=== PATIENT | female | born 1945 | race Caucasian/White ===

== ENCOUNTER 2016-11-13 10:59 | Inpatient (IN) | payer MEDICARE, OTHER ==
[2016-11-13] VITALS (13 sets, daily range): BP systolic 92–126; BP diastolic 72–92
[~2016-11-13] VITALS: Ht 175.3 cm; Wt 109.0 kg
[~2016-11-13 10:59] MED LIST: AMLO5TAB2 PO; ASP325T PO; BNZ20T PO; FLUO20CA25 PO; NAPR-243 PO; NF-ESOM40C PO; OXB5T PO; OXYC-12 PO; SENN1TAB76 PO
[2016-11-13] MEDS ORDERED: NS IV 500 ML 500 ML IV ONE ×2 (11:12→12:11)
[2016-11-13] MEDS ORDERED: DILTIAZEM 25 MG/5 ML INJ (CARDIZEM) VIAL IVP ONE (11:15)
[2016-11-13] MEDS ORDERED: RX-NITROGLYCERIN 0.4 MG TAB BTL 25'S SL PRN (11:15)
[2016-11-13 11:21] LABS: BASOPHILS # (AUTO) 0.1 10^3/uL (0.0-0.1); BASOPHILS % (AUTO) 1 % (0-10); EOSINOPHILS # (AUTO) 0.2 10^3/uL (0.0-0.3); EOSINOPHILS % (AUTO) 4 % (0-10); LYMPHOCYTES # (AUTO) 2.8 X 10^3 (1.0-4.0); LYMPHOCYTES % (AUTO) 46 % (12-44); MEAN CORPUSCULAR HEMOGLOBIN 30 PG (25-34); MEAN CORPUSCULAR HGB CONC 33 G/DL (32-36); MEAN CORPUSCULAR VOLUME 92 FL (80-99); MEAN PLATELET VOLUME 9.7 FL (7.4-10.4); MONOCYTES # (AUTO) 0.4 X 10^3 (0.0-1.0); MONOCYTES % (AUTO) 7 % (0-12); NEUTROPHILS # (AUTO) 2.5 X 10^3 (1.8-7.8); NEUTROPHILS % (AUTO) 42 % (42-75); PLATELET COUNT 254 10^3/uL (130-400); RED BLOOD COUNT 5.21 10^6/uL (4.35-5.85); RED CELL DISTRIBUTION WIDTH 13.2 % (10.0-14.5); WHITE BLOOD COUNT 6.1 10^3/uL (4.3-11.0)
[2016-11-13] MEDS: DILTIAZEM DRIP 100 MG in SODIUM CHLORIDE (ADD-VANTAGE) 100 ML IV SCH ×2 (11:27→20:55)
[2016-11-13 11:28] LABS: INR 0.9 (0.8-1.4); PROTHROMBIN TIME PATIENT 12.3 SEC (12.2-14.7)
--- NOTE | 2016-11-13 11:33 | ED Chest Pain ---
General Stated Complaint: IRREGULAR HEARTRATE Source: patient Exam Limitations: no limitations History of Present Illness Time seen by provider: 11:09 Initial Comments Here with report of chest pressure that started a [place] [facility] She felt palpitations as well. Never had anything like this before. States that she feels her heart is beating very fast. Timing/Duration: 1-3 hours, constant Severity/Quality: moderate, aching, pressure Location: central Radiation: neck, back Activities at Onset: activity Prior CP/Workup: no prior chest pain ASA po JACK PRIZER: Yes NTG SL JACK PRIZER: No Associated Symptoms: No back pain, No diaphoresis, No nausea/vomiting, No shortness of breath Allergies and Home Medications Allergies Coded Allergies: No Known Drug Allergies (Unverified , 12/02/12) Home Medications Amlodipine Besylate 5 Mg Tablet, 5 MG PO DAILY, (Reported) Aspirin 325 Mg Tab, 325 MG PO DAILY, (Reported) Benazepril Hcl 20 Mg Tablet, 20 MG PO DAILY, (Reported) Esomeprazole Mag Trihydrate 40 Mg Capsule.dr, 40 MG PO DAILY, (Reported) Oxybutynin Chloride 5 Mg Tab, 5 MG PO DAILY, (Reported) Review of Systems Constitutional: see HPI, No chills, No fever EENTM: No Symptoms Reported Respiratory: No Symptoms Reported, Denies Cough, Denies Orthopnea, Denies Shortness of Air Cardiovascular: See HPI, Chest Pain, Denies Edema, Irregular Heart Rate, Lightheadedness, Palpitations Gastrointestinal: No Symptoms Reported, Denies Abdominal Pain, Denies Nausea, Denies Vomiting Genitourinary: No Symptoms Reported Musculoskeletal: no symptoms reported Skin: no symptoms reported Psychiatric/Neurological: No Symptoms Reported, Other (is sad related to the recent loss of her son due to cancer.) Endocrine: No Symptoms Reported All Other Systems Reviewed Negative Unless Noted: Yes Past Indsioj-Nodjjx-Ffsgau Hx Patient Social History Alcohol Use: Denies Use Recreational Drug Use: No Smoking Status: Never a Smoker Immunizations Up To Date Tetanus Booster (TDap): More than 5yrs Date of Pneumonia Vaccine: Dec 08, 2012 Surgeries HX Surgeries: Yes (SKIN LESIONS REMOVED, D&C X4, APPY, L CTR, HAMMERTOE, HEEL SPURS, R RCR) Surgeries: Appendectomy, Orthopedic Respiratory Hx Respiratory Disorders: No Cardiovascular Hx Cardiac Disorders: Yes Cardiac Disorders: Hypertension Neurological Hx Neurological Disorders: Yes (POSSIBLY HAD A SEIZURE WHEN 41, DID A BUNCH OF TESTS ALL NEG, NONE SINCE) Reproductive System Hx Reproductive Disorders: No Genitourinary Hx Genitourinary Disorders: No Gastrointestinal Hx Gastrointestinal Disorders: Yes (HEP A A CHILD, ) Musculoskeletal Hx Musculoskeletal Disorders: Yes (OSTEOARTHRITIS) Musculoskeletal Disorders: Arthritis Endocrine Hx Endocrine Disorders: No HEENT HX ENT Disorders: Yes (GLASSES) Cancer Hx Cancer: Yes Cancer: Skin Psychosocial Hx Psychiatric Problems: No Integumentary HX Skin/Integumentary Disorder: Yes (HX OF SKIN CA) Blood Transfusions Hx Blood Disorders: No Reviewed Nursing Assessment Reviewed/Agree w Nursing PMH: Yes Family Medical History Significant Family History: No Pertinent Family Hx Physical Exam Vital Signs Vital Sign - Last 12Hours 11/13/16 11:00 Temp 96.9 Pulse 133 Resp 19 B/P (MAP) 122/84 Pulse Ox 91 O2 Delivery Nasal Cannula O2 Flow Rate 2.00 Capillary Refill : General Appearance: WD/WN, Anxious HEENT: PERRL/EOMI, Pharynx Normal Neck: Non Tender, Carotid Bruit Respiratory: Lungs Clear, Normal Breath Sounds Cardiovascular: No Murmur, Irregularly Irregular Gastrointestinal: Non Tender, Soft Extremity: Normal Range of Motion, Non Tender Neurologic/Psychiatric: Alert, Oriented x3 Skin: Normal Color, Warm/Dry (states feels better) Progress/Results/Core Measures Results/Orders Lab Results Laboratory Tests Test 11/13/16 11:05 Range/Units White Blood Count 6.1 4.3-11.0 10^3/uL Red Blood Count 5.21 4.35-5.85 10^6/uL Hemoglobin 15.7 11.5-16.0 G/DL Hematocrit 48 35-52 % Mean Corpuscular Volume 92 80-99 FL Mean Corpuscular Hemoglobin 30 25-34 PG Mean Corpuscular Hemoglobin Concent 33 32-36 G/DL Red Cell Distribution Width 13.2 10.0-14.5 % Platelet Count 254 130-400 10^3/uL Mean Platelet Volume 9.7 7.4-10.4 FL Neutrophils (%) (Auto) 42 42-75 % Lymphocytes (%) (Auto) 46 H 12-44 % Monocytes (%) (Auto) 7 0-12 % Eosinophils (%) (Auto) 4 0-10 % Basophils (%) (Auto) 1 0-10 % Neutrophils # (Auto) 2.5 1.8-7.8 X 10^3 Lymphocytes # (Auto) 2.8 1.0-4.0 X 10^3 Monocytes # (Auto) 0.4 0.0-1.0 X 10^3 Eosinophils # (Auto) 0.2 0.0-0.3 10^3/uL Basophils # (Auto) 0.1 0.0-0.1 10^3/uL Prothrombin Time 12.3 12.2-14.7 SEC INR Comment 0.9 0.8-1.4 Activated Partial Thromboplast Time 31 24-35 SEC Sodium Level 141 135-145 MMOL/L Potassium Level 3.7 3.6-5.0 MMOL/L Chloride Level 109 H 98-107 MMOL/L Carbon Dioxide Level 23 21-32 MMOL/L Anion Gap 9 5-14 MMOL/L Blood Urea Nitrogen 15 7-18 MG/DL Creatinine 0.94 0.60-1.30 MG/DL Estimat Glomerular Filtration Rate 58 BUN/Creatinine Ratio 16 Glucose Level 105 70-105 MG/DL Calcium Level 9.2 8.5-10.1 MG/DL Magnesium Level 2.1 1.8-2.4 MG/DL Total Bilirubin 0.8 0.1-1.0 MG/DL Aspartate Amino Transf (AST/SGOT) 19 5-34 U/L Alanine Aminotransferase (ALT/SGPT) 18 0-55 U/L Alkaline Phosphatase 78 40-136 U/L Myoglobin 42.7 10.0-92.0 NG/ML Troponin I < 0.30 <0.30 NG/ML B-Type Natriuretic Peptide 109.5 H <100.0 PG/ML Total Protein 7.6 6.4-8.2 GM/DL Albumin 3.8 3.2-4.5 GM/DL My Orders Orders - CARL PATRICK MD Cbc With Automated Diff (11/13/16 11:10) Magnesium (11/13/16 11:10) Chest 1 View, Ap/Pa Only (11/13/16 11:10) Ekg Tracing (11/13/16 11:10) Cardiac Profile 1 (11/13/16 11:10) Comprehensive Metabolic Panel (11/13/16 11:10) Myoglobin Serum (11/13/16 11:10) Protime With Inr (11/13/16 11:10) Partial Thromboplastin Time (11/13/16 11:10) O2 (11/13/16 11:10) Monitor-Rhythm Ecg Trace Only (11/13/16 11:10) Lipid Panel (11/14/16 06:00) Saline Lock/Iv-Start (11/13/16 11:10) BNP (11/13/16 11:10) Sodium Chloride (Ad... W/Diltiazem Drip (11/13/16 11:15) Diltiazem Injection (Cardizem Injection) (11/13/16 11:15) Rx-Nitroglycerin Sl Tabs (Rx-Nitrostat S (11/13/16 11:15) Ns Iv 500 Ml (Sodium Chloride 0.9%) (11/13/16 11:12) Ns Iv 500 Ml (Sodium Chloride 0.9%) (11/13/16 12:11) Medications Given in ED Current Medications Medications Dose Ordered Sig/Aicha Route Start Time Stop Time Status Last Admin Dose Admin Diltiazem HCl 10 mg ONCE ONCE IVP 11/13/16 11:15 11/13/16 11:16 DC 11/13/16 11:27 10 MG Sodium Chloride 500 ml @ 0 mls/hr Q0M ONCE IV 11/13/16 11:12 11/13/16 11:14 DC 11/13/16 11:28 0 MLS/HR Sodium Chloride 500 ml @ 0 mls/hr Q0M ONCE IV 11/13/16 12:11 11/13/16 12:13 DC 11/13/16 12:40 0 MLS/HR Vital Signs/I&O Vital Sign - Last 12Hours 11/13/16 11/13/16 11/13/16 11:00 11:00 11:27 Temp 96.9 Pulse 133 154 Resp 19 17 B/P (MAP) 122/84 100/66 Pulse Ox 91 95 94 O2 Delivery Nasal Cannula Room Air O2 Flow Rate 2.00 Progress Note : Progress Note Seen and evaluated. IV, labs, EKG and chest x-ray ordered. ASA held as she took this prior to arrival. Normal saline 500 mL bolus. Cardizem bolus 20 mg IV given. Cardizem drip initiated at 10 mg an hour. Monitor patient. I did discuss the case with Dr. Jackson at 1205 and he will see the patient in the ER. Patient to be admitted to Dr. Valderrama and case was discussed with her. She accepts patient for admission, inpatient status. Patient to go to ICU. 1300: Dr. Jackson evaluated. Patient will go to [facility] prior to admission. Patient and family agree. ECG Initial ECG Impression Date: Nov 13, 2016 Initial ECG Impression Time: 11:12 Initial ECG Rate: 144 Initial ECG Rhythm: A Fib/Flutter Initial ECG Impression: Atrial Fibrillation w/RVR Initial ECG Comparisson: Changed Comment Atrial fibrillation with rapid ventricular response. Leftward axis. No evidence of ST elevation OK. Change from previous. Interpreted by me. Diagnostic Imaging Diagonstic Imaging: Xray Plain Films/CT/US/NM/MRI: chest Comments NAME: SELIN GUTIÉRREZ [facility] REC#: [id number] PT STATUS: REG ER : 1945 PHYSICIAN: CARL PATRICK MD ADMIT DATE: 11/13/16/ER Signed Date of Exam: 11/13/16 CHEST 1 VIEW, AP/PA ONLY Portable upright radiograph of the chest. INDICATION: Chest pain. FINDINGS: The lungs are clear. The heart size is slightly prominent. There is no effusion or pneumothorax. The mediastinum and benja appear unremarkable. IMPRESSION: Unremarkable exam. Dictated by: Dictated on workstation # [id number] Dict: 11/13/16 1131 Trans: 11/13/16 1146 Interpreted by: JUVENTINO LO MD Electronically signed by: JUVENTINO LO MD 11/13/16 1146 Departure Communication Time/Spoke to Admitting Phy: 12:15 Time/Spoke to Consulting Physi: 12:05 Impression Impression: Primary Impression: Atrial fibrillation with rapid ventricular response Additional Impression: Chest pain Qualified Codes: R07.9 - Chest pain, unspecified Disposition: ADMITTED INPATIENT Condition: Stable Admissions Decision to Admit Reason: Admit from ER (General) Decision to Admit/Date: Nov 13, 2016 Time/Decision to Admit Time: 12:05 Departure-Patient Inst. Referrals: LIZA CERDA MD (PCP/Family) Primary Care Physician CARL PATRICK MD Nov 13, 2016 11:33
[2016-11-13 11:36] LABS: ALANINE AMINOTRANSFERASE 18 U/L (0-55); ALBUMIN 3.8 GM/DL (3.2-4.5); ANION GAP 9 MMOL/L (5-14); ASPARTATE AMINO TRANSFERASE 19 U/L (5-34); BILIRUBIN,TOTAL 0.8 MG/DL (0.1-1.0); BLOOD UREA NITROGEN 15 MG/DL (7-18); BUN/CREATININE RATIO 16; CALCIUM 9.2 MG/DL (8.5-10.1); CARBON DIOXIDE 23 MMOL/L (21-32); CHLORIDE 109 MMOL/L (98-107); CREATININE SERUM 0.94 MG/DL (0.60-1.30); GFR ESTIMATED 58; GLUCOSE 105 MG/DL (70-105); MAGNESIUM 2.1 MG/DL (1.8-2.4); POTASSIUM 3.7 MMOL/L (3.6-5.0); SODIUM 141 MMOL/L (135-145); TOTAL PROTEIN 7.6 GM/DL (6.4-8.2)
--- NOTE | 2016-11-13 11:36 | Diagnostic Imaging Report ---
Portable upright radiograph of the chest. INDICATION: Chest pain. FINDINGS: The lungs are clear. The heart size is slightly prominent. There is no effusion or pneumothorax. The mediastinum and benja appear unremarkable. IMPRESSION: Unremarkable exam. Dictated by: Dictated on workstation # [id number]
[2016-11-13 11:43] LABS: MYOGLOBIN SERUM 42.7 NG/ML (10.0-92.0)
[2016-11-13] MEDS ORDERED: fentaNYL INJECTION 100 MCG/2 ML AMP ONE (13:02)
[2016-11-13] MEDS ORDERED: MIDAZOLAM 5 MG/5 ML (VERSED) VIAL ONE (13:02)
[2016-11-13] MEDS ORDERED: NS IV 1000 ML 0 ML ONE (13:03)
[2016-11-13] MEDS ORDERED: HEParin (CATH LAB) 2,000 ML IV ONE (13:03)
--- NOTE | 2016-11-13 13:24 | Cardiac Procedure Note-CS/ASA ---
Pre-Procedure Note Pre-Op Procedure Note H&P Reviewed The H&P was reviewed, patient examined and no changes noted. Date H&P Reviewed: Nov 13, 2016 Time H&P Reviewed: 13:24 Conscious Sedation Pre-Proced Time Reviewed: 13:24 ASA Class: 3 Airway Mallampati Classification: ([place] appropriate class) I. II. III, IV Lungs Heart ASA score ASA 1: a normal healthy patient ASA 2: a patient with a mild systemic disease (mid diabetes, controlled hypertension, obesity x ASA 3: a patient with a severe systemic disease that limits activity (angina , COPD, prior Myocardial infarction) ASA 4: a patient with an incapacitating disease that is a constant threat to life (CHF, renal failure) ASA 5: a moribund patient not expected to survive 24 hrs. (ruptured aneurysm) ASA 6: a declared brain patient whose organs are being harvested. For emergent operations, add the letter E after the classification Grade 3 Sedation Plan: Analgesia, Amnesia, Plan communicated to team members, Discussed options with patient/fam, Discussed risks with patient/fam Note The patient is an appropriate candidate to undergo the planned procedure, sedation, and anesthesia. The patient immediately re-assessed prior to indication. NIKOLAI RAMOS MD Nov 13, 2016 13:24
--- NOTE | 2016-11-13 13:24 | Consultation-Cardiology ---
HPI-Cardiology Cardiology Consultation Date of Consultation 11/13/16 Date of Admission Time Seen by Provider: 13:23 Indication: Chest pain, palpitation HPI 71 years old lady with history of hypertension, was in her usual state of health until this morning when she went to the [facility] to exercise was swimming when she started having chest pain described it as dull achiness in the retrosternal area radiating to the jaw associated with palpitation and feeling anxious. Mild dyspnea. Symptoms were persistent, came into the emergency room and noted to be in atrial fibrillation with rapid ventricular response. Heart rate is slightly better on Cardizem drip but she still having mild chest discomfort. [place] some palpitation. Denied any similar episode in the past but felt occasional discomfort in her chest and back. No fever or chills. No cough or sputum. Had mild edema. No syncope or near syncopal episodes. Home Medications & Allergies Allergies: Coded Allergies: No Known Drug Allergies (Unverified , 12/02/12) Home Medication List Reviewed: Yes MPC-Wwptam-Mgdxnl Hx Patient Social History Marital Status: Employed/Student: employed Alcohol Use: Denies Use Recreational Drug Use: No Smoking Status: Never a Smoker 2nd Hand Smoke Exposure: No Recent Foreign Travel: No Recent Infectious Disease Expo: No Recent Hopitalizations: No Immunizations Up To Date Tetanus Booster (TDap): More than 5yrs Date of Pneumonia Vaccine: Dec 08, 2012 Past Medical History Past history is discussed below Family Medical History Significant Family History: No Pertinent Family Hx Family Medical Hx family history of CAD and hypertension Constitutional: see HPI, malaise EENTM: no symptoms reported, see HPI Respiratory: see HPI, No cough, dyspnea on exertion, No hemoptysis, No orthopnea, No phlegm, short of breath, No stridor, No wheezing, No other Cardiovascular: see HPI, chest pain, palpitations Gastrointestinal: no symptoms reported, see HPI Genitourinary: no symptoms reported, see HPI Musculoskeletal: no symptoms reported, see HPI Skin: see HPI Psychiatric/Neurological: No Symptoms Reported, See HPI Reviewed Test Results Reviewed Test Results Lab Laboratory Tests Test 11/13/16 11:05 Range/Units White Blood Count 6.1 4.3-11.0 10^3/uL Red Blood Count 5.21 4.35-5.85 10^6/uL Hemoglobin 15.7 11.5-16.0 G/DL Hematocrit 48 35-52 % Mean Corpuscular Volume 92 80-99 FL Mean Corpuscular Hemoglobin 30 25-34 PG Mean Corpuscular Hemoglobin Concent 33 32-36 G/DL Red Cell Distribution Width 13.2 10.0-14.5 % Platelet Count 254 130-400 10^3/uL Mean Platelet Volume 9.7 7.4-10.4 FL Neutrophils (%) (Auto) 42 42-75 % Lymphocytes (%) (Auto) 46 H 12-44 % Monocytes (%) (Auto) 7 0-12 % Eosinophils (%) (Auto) 4 0-10 % Basophils (%) (Auto) 1 0-10 % Neutrophils # (Auto) 2.5 1.8-7.8 X 10^3 Lymphocytes # (Auto) 2.8 1.0-4.0 X 10^3 Monocytes # (Auto) 0.4 0.0-1.0 X 10^3 Eosinophils # (Auto) 0.2 0.0-0.3 10^3/uL Basophils # (Auto) 0.1 0.0-0.1 10^3/uL Prothrombin Time 12.3 12.2-14.7 SEC INR Comment 0.9 0.8-1.4 Activated Partial Thromboplast Time 31 24-35 SEC Sodium Level 141 135-145 MMOL/L Potassium Level 3.7 3.6-5.0 MMOL/L Chloride Level 109 H 98-107 MMOL/L Carbon Dioxide Level 23 21-32 MMOL/L Anion Gap 9 5-14 MMOL/L Blood Urea Nitrogen 15 7-18 MG/DL Creatinine 0.94 0.60-1.30 MG/DL Estimat Glomerular Filtration Rate 58 BUN/Creatinine Ratio 16 Glucose Level 105 70-105 MG/DL Calcium Level 9.2 8.5-10.1 MG/DL Magnesium Level 2.1 1.8-2.4 MG/DL Total Bilirubin 0.8 0.1-1.0 MG/DL Aspartate Amino Transf (AST/SGOT) 19 5-34 U/L Alanine Aminotransferase (ALT/SGPT) 18 0-55 U/L Alkaline Phosphatase 78 40-136 U/L Myoglobin 42.7 10.0-92.0 NG/ML Troponin I < 0.30 <0.30 NG/ML B-Type Natriuretic Peptide 109.5 H <100.0 PG/ML Total Protein 7.6 6.4-8.2 GM/DL Albumin 3.8 3.2-4.5 GM/DL Physical Exam Vital Signs Vital Sign - Last 12Hours 11/13/16 11:00 Temp 96.9 Pulse 133 Resp 19 B/P (MAP) 122/84 Pulse Ox 91 O2 Delivery Nasal Cannula O2 Flow Rate 2.00 Capillary Refill : Less Than 3 Seconds General Appearance: No Apparent Distress, WD/WN Eyes: Bilateral Eye EOMI, Bilateral Eye Normal Inspection, Bilateral Eye PERRL HEENT: PERRL/EOMI, TMs Normal, Normal ENT Inspection, Pharynx Normal Neck: Full Range of Motion, Normal Inspection, Non Tender, Supple, Carotid Bruit Respiratory: Chest Non Tender, Lungs Clear, Normal Breath Sounds, No Accessory Muscle Use, No Respiratory Distress Cardiovascular: No Edema, No Gallop, No JVD, No Murmur, Normal Peripheral Pulses, Irregularly Irregular, Tachycardia Gastrointestinal: Normal Bowel Sounds, No Organomegaly, No Pulsatile Mass, Non Tender, Soft Back: Normal Inspection, No CVA Tenderness, No Vertebral Tenderness Extremity: Normal Capillary Refill, Normal Inspection, Normal Range of Motion, Non Tender, No Calf Tenderness, No Pedal Edema Neurologic/Psychiatric: Alert, Oriented x3, No Motor/Sensory Deficits, Normal Mood/Affect Skin: Normal Color, Warm/Dry Lymphatic: No Adenopathy A/P-Cardiology Admission Diagnosis Chest pain nonspecific etiology Atrial flutter related to rapid ventricular response Tachycardia Hypertension Palpitation Assessment/Plan Chest pain resulting in angina, probably secondary to tachycardia, underlying coronary artery disease cannot be entirely ruled out, still having some active chest pain, I decided to proceed with cardiac catheterization possible PTCA Atrial fibrillation with rapid ventricular response, started on Cardizem drip, post cardiac catheterization I will start anticoagulation and monitor closely. Hypertension, restart medication, monitor blood pressure on Cardizem and add beta blockers. 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 Family history of coronary artery disease and hypertension Clinical Quality Measures AMI/AHF: ASA po Prior to arrival: Yes NIKOLAI RAMOS MD Nov 13, 2016 13:24
[2016-11-13] MEDS ORDERED: DILTIAZEM DRIP 100 MG in SODIUM CHLORIDE (ADD-VANTAGE) 100 ML IV SCH (14:00)
--- NOTE | 2016-11-13 14:06 | Cardiac Cath Report ---
Cardiac Cath Report Physician (s)/Instrumentation Technologist (s) Physician NIKOLAI RAMOS MD Pre-Procedure Diagnosis Pre-Procedure Diagnosis: chest pain Post-Procedure Note Procedure Start Date: Nov 13, 2016 Procedure Start Time: 14:03 Name of Procedure: left heart catheterization, aortic arch angiogram Findings/Procedure Note PROCEDURE NOTE: After explaining the procedure to the patient, all pros and cons were explained, all questions were answered. The patient signed the consent and then she was placed on the cardiac catheterization laboratory. The patient was placed on the cardiac catheterization laboratory. Groin was prepped SL fashion local anesthesia was used. Sheath placed in the artery. Rolando right and left catheter were used to access the coronary system. Pigtail was used to access the left ventricular cavity. Left ventriculogram was done Aortic arch angiogram was done At the end of the procedure the sheath was removed. 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 Not amendable to intervention Left Circumflex has mild disease nonobstructive disease Right Coronory Artery has mild disease nonobstructive disease LV Gram normal left ventricular size with normal contraction with ejection fraction 60 percent Aorta evaluation of the aortic arch showed mild atherosclerotic disease, no dissection, no aneurysm, origin of the great neck vessels is normal CONCLUSION: small vessel disease at the distal LAD at the apical area otherwise mild to moderate disease nonobstructive disease Normal left ventricular size and systolic function. Ejection fraction 60 percent Normal aortic arch and great neck vessels DISCUSSION AND RECOMMENDATION: chest pain is probably due to tachycardia, medical therapy is recommended no intervention is warranted Anesthesia Type: Conscious Sedation Estimated blood loss (mL): 25 ml Contrast Amount: 74 ml Total Radiation Dose: 633 mGy Post-Procedure Diagnosis Post-operative diagnosis: chest pain nonspecific etiology Atrial fibrillation NIKOLAI RAMOS MD Nov 13, 2016 2:06 pm
[2016-11-13] MEDS ORDERED: DIGOXIN 0.25 MG/ML (LANOXIN) 2 ML AMP IV NR (15:14)
[2016-11-13] MEDS ORDERED: PATIENT MAY USE OWN MEDS, ALL PO SCH (15:15)
[2016-11-13] MEDS ORDERED: PANTOPRAZOLE 40 MG (PROTONIX) TAB PO NR (15:15)
[2016-11-13] MEDS: NS IV 1000 ML 1,000 ML IV SCH (15:29)
[2016-11-13] MEDS: ENOXAPARIN 100 MG/1 ML (LOVENOX) SYR SC SCH (15:29)
[2016-11-13] MEDS ORDERED: MUPI22OI2 TP (15:44)
[2016-11-13] MEDS ORDERED: IBUP-2055 PO (15:44)
[2016-11-13] MEDS ORDERED: BENA10TA2 PO (15:44)
[2016-11-13] MEDS ORDERED: AMLO5TAB2 PO (15:44)
[2016-11-13] MEDS ORDERED: OMEP20CA12 PO (15:44)
[2016-11-13] MEDS ORDERED: OXYB5TAB9 PO (15:44)
[2016-11-13] MEDS ORDERED: FLUO20CA25 PO (15:44)
[2016-11-13] MEDS ORDERED: ASPI-983 PO (15:44)
[2016-11-14] VITALS (11 sets, daily range): BP systolic 108–154; BP diastolic 67–100
[2016-11-14] MEDS: ENOXAPARIN 100 MG/1 ML (LOVENOX) SYR SC SCH (03:57)
[2016-11-14] MEDS: NS IV 1000 ML 1,000 ML IV SCH (04:06)
[2016-11-14 04:09] LABS: BASOPHILS # (AUTO) 0.1 10^3/uL (0.0-0.1); BASOPHILS % (AUTO) 1 % (0-10); EOSINOPHILS # (AUTO) 0.3 10^3/uL (0.0-0.3); EOSINOPHILS % (AUTO) 4 % (0-10); LYMPHOCYTES # (AUTO) 2.6 X 10^3 (1.0-4.0); LYMPHOCYTES % (AUTO) 38 % (12-44); MEAN CORPUSCULAR HEMOGLOBIN 30 PG (25-34); MEAN CORPUSCULAR HGB CONC 33 G/DL (32-36); MEAN CORPUSCULAR VOLUME 92 FL (80-99); MEAN PLATELET VOLUME 9.5 FL (7.4-10.4); MONOCYTES # (AUTO) 0.6 X 10^3 (0.0-1.0); MONOCYTES % (AUTO) 9 % (0-12); NEUTROPHILS # (AUTO) 3.2 X 10^3 (1.8-7.8); NEUTROPHILS % (AUTO) 48 % (42-75); PLATELET COUNT 219 10^3/uL (130-400); RED BLOOD COUNT 4.98 10^6/uL (4.35-5.85); RED CELL DISTRIBUTION WIDTH 13.2 % (10.0-14.5); WHITE BLOOD COUNT 6.7 10^3/uL (4.3-11.0)
[2016-11-14 04:49] LABS: ANION GAP 10 MMOL/L (5-14); BLOOD UREA NITROGEN 12 MG/DL (7-18); BUN/CREATININE RATIO 15; CALCIUM 9.1 MG/DL (8.5-10.1); CARBON DIOXIDE 21 MMOL/L (21-32); CHLORIDE 109 MMOL/L (98-107); CHOLESTEROL 215 MG/DL (< 200); DIRECT LDL 149 MG/DL (1-129); GFR ESTIMATED > 60; GLUCOSE 101 MG/DL (70-105); MAGNESIUM 2.1 MG/DL (1.8-2.4); PHOSPHORUS 3.3 MG/DL (2.3-4.7); SODIUM 140 MMOL/L (135-145); TRIGLYCERIDES 166 MG/DL (<150); VLDL CHOLESTEROL 33 MG/DL (5-40)
[2016-11-14] MEDS ORDERED: KCL 20 MEQ TAB (K-DUR) PO SCH (06:00)
[2016-11-14] MEDS ORDERED: MAGNESIUM 1 GM/100 ML IVPB 100 ML IV SCH (06:00)
[2016-11-14] MEDS ORDERED: POTASSIUM CL 10MEQ/50ML IVPB 50 ML IV SCH (06:00)
[2016-11-14] MEDS: PANTOPRAZOLE 40 MG (PROTONIX) TAB PO SCH (07:33)
[2016-11-14] MEDS: ASPIRIN E.C. 81 MG (ECOTRIN) TAB PO SCH (07:33)
--- NOTE | 2016-11-14 08:43 | Diagnostic Imaging Report ---
INDICATION: Arrhythmia. Comparison made with prior examination of 11/13/2016. FINDINGS: There is cardiomegaly. The lungs are clear. There is no pleural effusion or pneumothorax. Mediastinum is unremarkable. IMPRESSION: No acute cardiopulmonary abnormality. Cardiomegaly. Dictated by: Dictated on workstation # [id number]
--- NOTE | 2016-11-14 09:12 | History & Physical-Hospitalist ---
HPI History of Present Illness: HPI/Chief Complaint CC: Chest pain with new onset AF w/RVR HPI: This is a 71-year-old white female clinic patient of Dr. Ribera with a past medical history of depression, hypertension but no history of cardiac disease that presents with chest pain and was found to have new onset atrial fibrillation with rapid ventricular response and due to the suspicion for angina she was taken to cardiac catheterization lab and that revealed only mild disease so she was given digoxin and Cardizem drip she converted through the night and now has become bradycardic but asymptomatic. She has been under a lot of stress with multiple deaths in the family and is very depressed. She is feeling otherwise well and much improved today. Source: patient Exam Limitations: no limitations Date Seen 11/14/16 Time Seen by Provider: 08:45 Attending Physician Ivy Valderrama Floyd R MD Referring Physician Date of Admission Home Medications & Allergies Home Medications Reviewed patient Home Medication Reconciliation Form Allergies Allergies Coded Allergies No Known Drug Allergies (Unverified12/02/12) Past Duzpzfr-[id number]-Zlvcqk Hx Patient Social History Marrital Status: Employed/Student: employed Alcohol Use: Denies Use Recreational Drug Use: No Smoking Status: Never a Smoker 2nd Hand Smoke Exposure: No Physical Abuse Screen: No Sexual Abuse: No Recent Foreign Travel: No Contact w/other who traveled: No Recent Hopitalizations: No Recent Infectious Disease Expo: No Immunizations Up To Date Tetanus Booster (TDap): More than 5yrs Date of Pneumonia Vaccine: Dec 08, 2012 Seasonal Allergies Seasonal Allergies: No Surgeries HX Surgeries: Yes (SKIN LESIONS REMOVED, D&C X4, APPY, L CTR, HAMMERTOE, HEEL SPURS, R RCR) Surgeries: Appendectomy, Orthopedic Respiratory Hx Respiratory Disorders: No Cardiovascular Hx Cardiovascular Disorders: Yes Cardiac Disorders: Hypertension Neurological Hx Neurological Disorders: Yes (POSSIBLY HAD A SEIZURE WHEN 41, DID A BUNCH OF TESTS ALL NEG, NONE SINCE) Reproductive System Hx Reproductive Disorders: No Sexually Transmitted Disease: No HIV/AIDS: No Female Reproductive Disorders: Denies Genitourinary Hx Genitourinary Disorders: No Gastrointestinal Hx Gastrointestinal Disorders: Yes (HEP A A CHILD, ) Gastrointestinal Disorders: Gastroesophageal Reflux Musculoskeletal Hx Musculoskeletal Disorders: Yes (OSTEOARTHRITIS) Musculoskeletal Disorders: Arthritis, Chronic Back Pain Endocrine Hx Endocrine Disorders: No HEENT HX ENT Disorders: Yes (GLASSES) Loss of Vision: Denies Hearing Impairment: Denies Cancer Hx Cancer: Yes Cancer: Skin Psychosocial Hx Psychiatric Problems: No Integumentary HX Skin/Integumentary Disorder: Yes (HX OF SKIN CA) Blood Transfusions Hx Blood Disorders: No Reviewed Nursing Assessment Reviewed/Agree w Nursing PMH: Yes Family Medical History Significant Family History: No Pertinent Family Hx Review of Systems Constitutional: see HPI, weakness EENTM: no symptoms reported Respiratory: short of breath Cardiovascular: chest pain Gastrointestinal: no symptoms reported Genitourinary: no symptoms reported Musculoskeletal: no symptoms reported Skin: no symptoms reported Psychiatric/Neurological: No Symptoms Reported All Other Systems Reviewed Negative Unless Noted: Yes Physical Exam Physical Exam Vital Signs Vital Sign - Last 12Hours 11/13/16 11:00 Temp 96.9 Pulse 133 Resp 19 B/P (MAP) 122/84 Pulse Ox 91 O2 Delivery Nasal Cannula O2 Flow Rate 2.00 Capillary Refill : Less Than 3 Seconds General Appearance: No Apparent Distress, WD/WN, Chronically ill, Obese Eyes: Bilateral Eye Normal Inspection, Bilateral Eye PERRL HEENT: PERRL/EOMI, Normal ENT Inspection, Pharynx Normal Neck: Full Range of Motion, Normal Inspection, Non Tender, Supple, Carotid Bruit Respiratory: Chest Non Tender, Lungs Clear, Normal Breath Sounds, No Accessory Muscle Use, No Respiratory Distress Cardiovascular: Regular Rate, Rhythm, No Edema, No Gallop, No JVD, No Murmur, Normal Peripheral Pulses Gastrointestinal: Normal Bowel Sounds, No Organomegaly, No Pulsatile Mass, Non Tender, Soft Back: Normal Inspection, No CVA Tenderness, No Vertebral Tenderness Extremity: Normal Capillary Refill, Normal Inspection, Normal Range of Motion, Non Tender, No Calf Tenderness, No Pedal Edema Neurologic/Psychiatric: Alert, Oriented x3, No Motor/Sensory Deficits, Depressed Affect Skin: Normal Color, Warm/Dry Lymphatic: No Adenopathy Results Results/Procedures Lab Laboratory Tests 11/13/16 11:05 11/14/16 03:50 Assessment/Plan Admission Diagnosis Assessment: Chest pain with atrial fibrillation with rapid ventricular response new onset documented in ER Mild coronary artery disease on cardiac catheterization yesterday by Dr. Jackson Hypertension Depression Hyperlipidemia Assessment and Plan Plan: Cardiology for disposition Cardiology for cardiac meds Monitor closely Clinical Quality Measures AMI/AHF: ASA po Prior to arrival: Yes DVT/VTE Risk/Contraindication: Risk Factor Score Per Nursin RFS Level Per Nursing on Admit: 4+=Very High IVY VALDERRAMA DO Nov 14, 2016 09:12
--- NOTE | 2016-11-14 09:17 | Cardiology Progress Note ---
Subjective Date Seen by Provider: Nov 14, 2016 Time Seen by Provider: 09:00 Subjective/Events-last exam patient is laying down in bed, feeling better, denied any palpitation or chest pain, converted to sinus rhythm overnight. Groin is healing well. Review of Systems General: No Chills, No Night Sweats, No Fatigue, No Malaise, No Appetite, No Other HEENT: No Head Aches, No Visual Changes, No Eye Pain, No Ear Pain, No Dysphasia , No Sinus Congestion, No Post Nasal Drip, No Sore Throat, No Other Pulmonary: No Dyspnea, No Cough, No Pleuritic Chest Pain, No Other Cardiovascular: No: Chest Pain, Edema, Lt Headedness, Orthopnea, Other, Palpitations, Paroxysmal Noc. Dyspnea Objective-Cardiology Exam Last Set of Vital Signs Vital Signs 11/14/16 11/14/16 06:00 07:32 Temp 97.7 Pulse 47 Resp 12 B/P (MAP) 130/80 Pulse Ox 96 O2 Delivery Room Air O2 Flow Rate 2.00 Capillary Refill : Less Than 3 Seconds I&O Bad tableGeneral: Alert, Oriented X3, Cooperative HEENT: Atraumatic, PERRLA Neck: Supple, No JVD, No Thyromegaly Lungs: Clear to Auscultation, Normal Air Movement Heart: Normal S1, Normal S2, No Murmurs, Other (bradycardia) Abdomen: Normal Bowel Sounds, Soft, No Tenderness, No Hepatosplenomegaly, No Masses Extremities: No Clubbing, No Cyanosis, No Edema, Normal Pulses, No Tenderness/ Swelling Skin: No Rashes, No Breakdown, No Significant Lesion Neuro: Normal Gait, Normal Speech, Strength at 5/5 X4 Ext, Normal Tone, Sensation Intact Psych/Mental Status: Mental Status NL, Mood NL Results Lab Laboratory Tests 11/13/16 11:05 11/14/16 03:50 A/P-Cardiology Admission Diagnosis Chest pain nonspecific etiology Atrial flutter related to rapid ventricular response Tachycardia Hypertension Palpitation Assessment/Plan Chest pain, nonspecific etiology secondary to tachycardia and coronary artery disease Coronary artery disease status post cardiac catheterization done yesterday showing mild coronary artery disease except at the distal LAD that has a significant lesion but it is at the apical portion of the LAD at a small segment of the artery, not amendable to intervention, medical therapy is recommended no intervention is warranted. Paroxysmal atrial fibrillation, converted to sinus rhythm on Cardizem and digoxin, currently in sinus bradycardia. I discontinued Cardizem last night and discontinued digoxin, patient has been on amlodipine and Benazepril, I will restart KATARINA inhibitor and monitor her blood pressure. [id number] score is 3, yearly risk of stroke without oral anticoagulation is 3.2 percent. 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 Family history of coronary artery disease and hypertension Okay for discharge from cardiology standpoint in the afternoon if her heart rate improved and I will arrange for follow-up as an outpatient Clinical Quality Measures AMI/AHF: ASA po Prior to arrival: Yes DVT/VTE Risk/Contraindication: Risk Factor Score Per Nursin RFS Level Per Nursing on Admit: 4+=Very High NIKOLAI RAMOS MD Nov 14, 2016 09:17
[2016-11-14] MEDS ORDERED: APIXABAN 5 MG (ELIQUIS) TABLET ONE (09:46)
[2016-11-14] MEDS: FLUoxetine HCL 20 MG (PROzac) CAP PO SCH (09:52)
[2016-11-14] MEDS: BENAZEPRIL 10 MG (LOTENSIN) TAB PO SCH (09:52)
[2016-11-14] MEDS: OXYBUTYNIN (DITROPAN) 5 MG TAB PO SCH (09:53)
[2016-11-14] MEDS: APIXABAN 5 MG (ELIQUIS) TABLET PO SCH ×2 (09:53→19:58)
[2016-11-14] MEDS ORDERED: DIGOXIN 0.25 MG (LANOXIN) TAB PO SCH (18:00)
[2016-11-15 07:49] VITALS: BP 129/89
[2016-11-15] MEDS: PANTOPRAZOLE 40 MG (PROTONIX) TAB PO SCH (07:58)
[2016-11-15] MEDS: BENAZEPRIL 10 MG (LOTENSIN) TAB PO SCH (08:51)
[2016-11-15] MEDS: ASPIRIN E.C. 81 MG (ECOTRIN) TAB PO SCH (08:51)
[2016-11-15] MEDS: APIXABAN 5 MG (ELIQUIS) TABLET PO SCH (08:52)
[2016-11-15] MEDS: FLUoxetine HCL 20 MG (PROzac) CAP PO SCH (08:52)
[2016-11-15] MEDS: OXYBUTYNIN (DITROPAN) 5 MG TAB PO SCH (08:52)
[2016-11-15] MEDS ORDERED: ASPIRIN E.C. 81 MG (ECOTRIN) TAB PO SCH (09:00)
[2016-11-15] MEDS ORDERED: OMEPRAZOLE 20 MG (PriLOSEC) CAP NON-FORMULARY PO SCH (09:00)
--- NOTE | 2016-11-15 09:16 | Cardiology Progress Note ---
Subjective Date Seen by Provider: Nov 15, 2016 Time Seen by Provider: 09:14 Subjective/Events-last exam patient is laying down in bed, feeling well, had transient episode of bradycardia at night around midnight with a heart rate 42, asymptomatic. Heart rate now in the upper 50s and lower 60s. Review of Systems General: No Chills, No Night Sweats, No Fatigue, No Malaise, No Appetite, No Other HEENT: No Head Aches, No Visual Changes, No Eye Pain, No Ear Pain, No Dysphasia , No Sinus Congestion, No Post Nasal Drip, No Sore Throat, No Other Pulmonary: No Dyspnea, No Cough, No Pleuritic Chest Pain, No Other Cardiovascular: No: Chest Pain, Edema, Lt Headedness, Orthopnea, Other, Palpitations, Paroxysmal Noc. Dyspnea Objective-Cardiology Exam Last Set of Vital Signs Vital Signs 11/14/16 11/15/16 07:33 07:49 Temp 98.3 Pulse 59 Resp 18 B/P (MAP) 129/89 Pulse Ox 94 O2 Delivery Room Air O2 Flow Rate 2.00 Capillary Refill : Less Than 3 Seconds I&O Intake and Output 11/15/16 00:00 Intake Total 2092 ml Output Total 2450 ml Balance -358 ml Intake Oral 1602 ml IV Total 490 ml Output Urine Total 2450 ml # Voids 2 General: Alert, Oriented X3, Cooperative HEENT: Atraumatic, PERRLA Neck: Supple, No JVD, No Thyromegaly Lungs: Clear to Auscultation, Normal Air Movement Heart: Normal S1, Normal S2, No Murmurs, Other (bradycardia) Abdomen: Normal Bowel Sounds, Soft, No Tenderness, No Hepatosplenomegaly, No Masses Extremities: No Clubbing, No Cyanosis, No Edema, Normal Pulses, No Tenderness/ Swelling Skin: No Rashes, No Breakdown, No Significant Lesion Neuro: Normal Gait, Normal Speech, Strength at 5/5 X4 Ext, Normal Tone, Sensation Intact Psych/Mental Status: Mental Status NL, Mood NL A/P-Cardiology Admission Diagnosis Chest pain nonspecific etiology Atrial flutter related to rapid ventricular response Tachycardia Hypertension Palpitation Assessment/Plan Chest pain, nonspecific etiology secondary to tachycardia and coronary artery disease, improved, no further episodes were noted Coronary artery disease status post cardiac catheterization done yesterday showing mild coronary artery disease except at the distal LAD that has a significant lesion but it is at the apical portion of the LAD at a small segment of the artery, not amendable to intervention, medical therapy is recommended no intervention is warranted. Paroxysmal atrial fibrillation, converted to sinus rhythm on Cardizem and digoxin, currently in sinus bradycardia. most probably patient has underlying obstructive sleep apnea, recommend sleep study as an outpatient Sinus bradycardia, transient episode of heart rate in the 40s while asleep at midnight, most probably patient has underlying sleep apnea. [id number] score is 3, yearly risk of stroke without oral anticoagulation is 3.2 percent. Started on Eliquis. Hypertension, restart Benazepril and monitor blood pressure, discontinue amlodipine, patient cannot tolerate beta blockers due to bradycardia Hyperlipidemia, start Lipitor and monitor lipids History of traveling to [place], providing volunteered service. Family history of coronary artery disease and hypertension Okay for discharge from cardiology standpoint in the afternoon if her heart rate improved and I will arrange for follow-up as an outpatient Clinical Quality Measures AMI/AHF: ASA po Prior to arrival: Yes DVT/VTE Risk/Contraindication: Risk Factor Score Per Nursin RFS Level Per Nursing on Admit: 4+=Very High NIKOLAI RAMOS MD Nov 15, 2016 09:16
[2016-11-15] MEDS ORDERED: APIX5TAB PO (09:17)
--- NOTE | 2016-11-15 11:23 | Discharge Summary-Hospitalist ---
Diagnosis/Chief Complaint Date of Admission Date of Discharge Admission Diagnosis Assessment: Chest pain with atrial fibrillation with rapid ventricular response new onset documented in ER Mild coronary artery disease on cardiac catheterization yesterday by Dr. Jackson Hypertension Depression Hyperlipidemia Discharge Diagnosis Assessment: Chest pain with atrial fibrillation with rapid ventricular response new onset documented in ER then had bradycardia after converted on Cardizem drip but asymptomatic Mild coronary artery disease on cardiac catheterization Wednesday by Dr. Jackson Hypertension Depression Hyperlipidemia presumed RHONDA needs sleep study as outpt Plan: Cardiology for disposition Cardiology for cardiac meds Monitor closely Discharge Summary Discharge Physical Examination Allergies: Coded Allergies: No Known Drug Allergies (Unverified , 12/02/12) Vitals & I&Os Vital Signs Date Time Temp Pulse Resp B/P (MAP) Pulse Ox O2 Delivery O2 Flow Rate FiO2 11/15/16 08:00 94 Room Air 11/15/16 07:49 98.3 59 18 129/89 11/14/16 07:33 2.00 Hospital Course Patient had a brief hospital course. Admitted for CP and new onset AF w/RVR but suspicious for angina so she was taken to [facility] per Dr Jackson and that revealed only mild CAD. Cardizem drip maintained which converted back to NSR but had bradycardia so she was monitored another 24 hours which resulted in no med changes but she needs sleep study as an outpatient. She was deemed stable to [place]. Labs (last 24 hrs) Microbiology 11/13/16 MRSA Screen - Final, Complete MRSA not isolated Discharge Home Medications: Active Scripts Active Eliquis (Apixaban) 5 Mg Tablet 5 Mg PO BID Reported Aspirin EC (Aspirin) 81 Mg Tablet.dr 81 Mg PO DAILY Fluoxetine HCl 20 Mg Capsule 20 Mg PO DAILY Omeprazole 20 Mg Capsule.dr 20 Mg PO DAILY Benazepril HCl 10 Mg Tablet 10 Mg PO DAILY Oxybutynin Chloride 5 Mg Tablet 5 Mg PO DAILY Mupirocin 22 Gm Oint...g. TP BID Ibuprofen 200 Mg Tablet 400 Mg PO DAILY PRN TAKES 2 (200 MG) TABLETS Instructions to patient/family Please see electonic discharge instructions given to patient. Clinical Quality Measures AMI/AHF: ASA po Prior to arrival: Yes DVT/VTE Risk/Contraindication: Risk Factor Score Per Nursin RFS Level Per Nursing on Admit: 4+=Very High SHANE JENSEN DO Nov 15, 2016 11:23
[2016-11-15 12:00] VITALS: BP 132/86
[2016-11-15 13:55] VITALS: BP 132/86
== END 2016-11-15 13:15 | disposition home or self-care (01) | DRG 287 ==
LOC: EDUNIT# 10:59 → ER 11:01 → ICU 13:07 → SDC 13:07 → ICU 14:04 → UNDOFXSDCACCOM 11-14 09:50 → UNDOFXSDCRRACCOM 11-14 09:50 → UNDOFXSDCSVC 11-14 09:50 → ICU 11-15 13:15 → SDC 11-15 13:15
PROVIDERS: ADMIT Internal Medicine; ATTEND Internal Medicine
PROC: 4A023N7 Measurement of Cardiac Sampling and Pressure, Left Heart, Percutaneous Approach (ICD-10-PCS; principal; 2016-11-13)
PROC: B2111ZZ Fluoroscopy of Multiple Coronary Arteries using Low Osmolar Contrast (ICD-10-PCS; 2016-11-13)
PROC: B2151ZZ Fluoroscopy of Left Heart using Low Osmolar Contrast (ICD-10-PCS; 2016-11-13)
PROC: B3101ZZ Fluoroscopy of Thoracic Aorta using Low Osmolar Contrast (ICD-10-PCS; 2016-11-13)
DX: I48.0 Paroxysmal atrial fibrillation (principal); I48.92 Unspecified atrial flutter; I25.10 Atherosclerotic heart disease of native coronary artery without angina pectoris; I10 Essential (primary) hypertension; F32.9 Major depressive disorder, single episode, unspecified; E78.5 Hyperlipidemia, unspecified; G47.33 Obstructive sleep apnea (adult) (pediatric); Z82.49 Family history of ischemic heart disease and other diseases of the circulatory system
CPT/HCPCS: 36415; 71010; 80048; 80053; 80061; 83735; 83874; 83880; 84100; 84484; 85025; 85027; 85610; 85730; 87081; 93005; 93041; 93306; 96361; 96365

== ENCOUNTER 2016-12-21 20:54 | Outpatient (CLI) | payer MEDICARE, OTHER ==
[~2016-12-21 20:54] MED LIST changes: +APIX5TAB PO; +ASPI-983 PO; +BENA10TA2 PO; +IBUP-2055 PO; +MUPI22OI2 TP; +OMEP20CA12 PO; +OXYB5TAB9 PO
== END 2016-12-22 06:43 | disposition home or self-care (01) ==
LOC: SLEEP 20:54
PROVIDERS: ATTEND Physician Assistant
DX: G47.36 Sleep related hypoventilation in conditions classified elsewhere (principal); R06.83 Snoring
CPT/HCPCS: 95810

== ENCOUNTER 2017-06-25 12:49 | Emergency (ER) | payer MEDICARE, OTHER ==
[~2017-06-25] VITALS: Ht 175.3 cm; Wt 104.3 kg
[2017-06-25 16:23] LABS: BASOPHILS % (AUTO) 1 % (0-10); EOSINOPHILS # (AUTO) 0.2 10^3/uL (0.0-0.3); EOSINOPHILS % (AUTO) 4 % (0-10); HEMATOCRIT 45 % (35-52); HEMOGLOBIN 15.2 G/DL (11.5-16.0); LYMPHOCYTES # (AUTO) 2.9 X 10^3 (1.0-4.0); LYMPHOCYTES % (AUTO) 45 % (12-44); MEAN CORPUSCULAR HEMOGLOBIN 31 PG (25-34); MEAN CORPUSCULAR HGB CONC 34 G/DL (32-36); MEAN CORPUSCULAR VOLUME 91 FL (80-99); MEAN PLATELET VOLUME 9.5 FL (7.4-10.4); MONOCYTES # (AUTO) 0.6 X 10^3 (0.0-1.0); MONOCYTES % (AUTO) 10 % (0-12); NEUTROPHILS # (AUTO) 2.7 X 10^3 (1.8-7.8); NEUTROPHILS % (AUTO) 41 % (42-75); PLATELET COUNT 238 10^3/uL (130-400); RED BLOOD COUNT 4.94 10^6/uL (4.35-5.85); RED CELL DISTRIBUTION WIDTH 12.9 % (10.0-14.5); WHITE BLOOD COUNT 6.5 10^3/uL (4.3-11.0)
[2017-06-25 16:32] LABS: BILIRUBIN,URINE NEGATIVE (NEGATIVE); CLARITY,URINE CLEAR; COLOR,URINE YELLOW; GLUCOSE, URINE (UA) NEGATIVE (NEGATIVE); KETONES,URINE NEGATIVE (NEGATIVE); LEUKOCYTE ESTERASE ,URINE 2+ (NEGATIVE); NITRITE,URINE NEGATIVE (NEGATIVE); PH,URINE 6 (5-9); PROTEIN,URINE NEGATIVE (NEGATIVE); UROBILINOGEN,URINE NORMAL (NORMAL)
[2017-06-25 16:36] LABS: INR 1.2 (0.8-1.4); PROTHROMBIN TIME PATIENT 15.1 SEC (12.2-14.7)
[2017-06-25 16:43] LABS: BACTERIA,URINE FEW /HPF
[2017-06-25 16:47] LABS: ALANINE AMINOTRANSFERASE 14 U/L (0-55); ALBUMIN 4.1 GM/DL (3.2-4.5); ALKALINE PHOSPHATASE 77 U/L (40-136); AMYLASE 47 U/L (25-125); BILIRUBIN,TOTAL 0.6 MG/DL (0.1-1.0); BUN/CREATININE RATIO 14; CALCIUM 9.1 MG/DL (8.5-10.1); CARBON DIOXIDE 28 MMOL/L (21-32); CHLORIDE 107 MMOL/L (98-107); CREATININE SERUM 0.85 MG/DL (0.60-1.30); GFR ESTIMATED > 60; GLUCOSE 89 MG/DL (70-105); LIPASE 30 U/L (8-78); POTASSIUM 3.5 MMOL/L (3.6-5.0); SODIUM 140 MMOL/L (135-145); TOTAL PROTEIN 7.8 GM/DL (6.4-8.2)
--- NOTE | 2017-06-25 17:07 | Diagnostic Imaging Report ---
INDICATION: Shortness of breath. COMPARISON: Comparison made with prior examination from 11/14/2016. TECHNIQUE: PA and lateral views were obtained. FINDINGS: The heart size, mediastinal configuration, and pulmonary vascularity are within normal limits. There is no pleural effusion, pneumothorax, or pneumonia. The osseous structures are unremarkable. IMPRESSION: No acute cardiopulmonary abnormality. Dictated by: Dictated on workstation # [id number]
[2017-06-25] MEDS ORDERED: NS 250 ML (IVPB) BAG IV ONE ×2 (17:15→18:00)
[2017-06-25] MEDS ORDERED: IOHEXOL 350 MG/ML 100 ML (OMNIPAQUE 350) VIAL IV ONE (17:15)
[2017-06-25] MEDS ORDERED: IOHEXOL 350 MG/ML 150 ML (OMNIPAQUE 350) VIAL IV ONE (18:00)
--- NOTE | 2017-06-25 18:11 | Diagnostic Imaging Report ---
INDICATION: Difficulty breathing and chest pain. TECHNIQUE: Multiple contiguous axial images were obtained through the chest, abdomen, and pelvis after the uneventful bolus administration of intravenous contrast. MIP reconstructions were then performed. FINDINGS: There is minimal dependent atelectasis in the lung bases. There is no pleural or pericardial fluid. There is no pneumothorax. The thoracic aorta is normal in caliber and without evidence of dissection. There are no filling defects seen within the pulmonary arteries to suggest pulmonary embolism. The heart size is normal. There is no pathologically enlarged adenopathy in the chest. There are mild degenerative changes in the spine. There is a hiatal hernia. The liver is normal in size without focal lesions. Gallbladder is grossly unremarkable. There is no biliary ductal dilatation. Spleen is normal. The pancreas and adrenal glands are unremarkable. There is a small cyst in the right kidney. Kidneys are otherwise unremarkable. The abdominal aorta is nonaneurysmal. Bowel gas pattern is nonspecific. There is no free air. There is no ascites. There are no focal inflammatory changes. There is no pelvic mass, adenopathy, or free fluid. Bladder is normal. Uterus is normal. There are moderate degenerative changes in the spine. IMPRESSION: No evidence of aortic dissection or pulmonary embolism. Small right renal cyst. Small periumbilical hernia containing only omental fat. Degenerative changes in the spine. No other acute abnormality in the chest, abdomen, or pelvis. Dictated by: Dictated on workstation # [id number]
--- NOTE | 2017-06-25 18:22 | ED General ---
General Chief Complaint: Respiratory Problems Stated Complaint: BACK AND SIDE PAIN Nursing Triage Note: Pt c/o SOA since 0800 this morning. Pt also c/o L flank and side pain and pain to L shoulder and neck. Pt reports pain continues to get worse throughout the day. Nursing Sepsis Screen: No Definite Risk Allergies and Home Medications Allergies Coded Allergies: No Known Drug Allergies (Unverified , 12/02/12) Home Medications Apixaban 5 Mg Tablet, 5 MG PO BID Prescribed by: NIKOLAI RAMOS on 11/15/16 0917 Benazepril HCl 10 Mg Tablet, 10 MG PO DAILY, (Reported) Fluoxetine HCl 20 Mg Capsule, 20 MG PO DAILY, (Reported) Mupirocin 22 Gm Oint...g., TP BID, (Reported) Omeprazole 20 Mg Capsule.dr, 20 MG PO DAILY, (Reported) Oxybutynin Chloride 5 Mg Tablet, 5 MG PO DAILY, (Reported) Past [id number]-Onbcat Hx Patient Social History Alcohol Use: Denies Use Recreational Drug Use: No Smoking Status: Never a Smoker 2nd Hand Smoke Exposure: No Recent Foreign Travel: No Contact w/Someone Who Travel: No Recent Infectious Disease Expo: No Recent Hopitalizations: No Physical Abuse: No Sexual Abuse: No Immunizations Up To Date Tetanus Booster (TDap): More than 5yrs Date of Pneumonia Vaccine: Dec 08, 2012 Date of Influenza Vaccine: Jan 04, 2017 Seasonal Allergies Seasonal Allergies: No Surgeries History of Surgeries: Yes (SKIN LESIONS REMOVED, D&C X4, R CARPAL TUNNEL, HEEL SPURS, HAMMERTOE) Surgeries: Appendectomy, Orthopedic Respiratory History of Respiratory Disorde: Yes Respiratory Disorders: Pneumonia Currently Using CPAP: No Currently Using BIPAP: No Cardiovascular History of Cardiac Disorders: Yes (NEW ONSET AFIB) Cardiac Disorders: Hypertension Neurological History of Neurological Disord: Yes (POSSIBLY HAD A SEIZURE WHEN 41, DID A BUNCH OF TESTS ALL NEG, NONE SINCE) Reproductive System Hx Reproductive Disorders: No Sexually Transmitted Disease: No HIV/AIDS: No Female Reproductive Disorders: Denies Genitourinary History of Genitourinary Disor: No Gastrointestinal History of Gastrointestinal Di: Yes (HEP A A CHILD, ) Gastrointestinal Disorders: Gastroesophageal Reflux Musculoskeletal History of Musculoskeletal Dis: Yes (OSTEOARTHRITIS) Musculoskeletal Disorders: Arthritis, Chronic Back Pain Endocrine History of Endocrine Disorders: No HEENT History of HEENT Disorders: No Loss of Vision: Denies Hearing Impairment: Denies Cancer History of Cancer: Yes Cancer: Skin Did You Recieve Any Treatments: Yes Type of Tx Receive: Surgical Intervention Psychosocial History of Psychiatric Problem: Yes Behavioral Health Disorders: Depression Suicide Risk Score: 0 Integumentary History of Skin or Integumenta: Yes (HX OF SKIN CA WITH REMOVAL) Blood Transfusions History of Blood Disorders: No Family Medical History Significant Family History: No Pertinent Family Hx Physical Exam Vital Signs Vital Signs - First Documented 06/25/17 14:27 Temp 98.1 Pulse 51 Resp 18 B/P (MAP) 145/77 (99) Pulse Ox 93 O2 Delivery Room Air Capillary Refill : Less Than 3 Seconds Focused Exam Evaluation Lactate Level Laboratory Tests 06/25/17 16:05: Lactic Acid Level 0.93 Lactic Acid Level Laboratory Tests Test 06/25/17 16:05 Lactic Acid Level 0.93 MMOL/L (0.50-2.00) Progress/Results/Core Measures Suspected Sepsis Recent Fever Within 48 Hours: No Infection Criteria Present: None New/Unexplained Altered Menta: No Sepsis Screen: No Definite Risk Sepsis Diagnosis: SIRS Temperature:98.1 Pulse: 51 Respiratory Rate: 18 Laboratory Tests 06/25/17 16:05: White Blood Count 6.5 Blood Pressure 145 /77 Mean: 99 Laboratory Tests 06/25/17 16:05: Lactic Acid Level 0.93 Laboratory Tests 06/25/17 16:05: Creatinine 0.85, INR Comment 1.2, Platelet Count 238, Total Bilirubin 0.6 Results/Orders Lab Results Laboratory Tests Test 06/25/17 16:00 06/25/17 16:05 Range/Units Urine Color YELLOW Urine Clarity CLEAR Urine pH 6 5-9 Urine Specific [place] 1.020 1.016-1.022 Urine Protein NEGATIVE NEGATIVE Urine Glucose (UA) NEGATIVE NEGATIVE Urine Ketones NEGATIVE NEGATIVE Urine Nitrite NEGATIVE NEGATIVE Urine Bilirubin NEGATIVE NEGATIVE Urine Urobilinogen NORMAL NORMAL MG/DL Urine Leukocyte Esterase 2+ H NEGATIVE Urine RBC (Auto) NEGATIVE NEGATIVE Urine RBC NONE /HPF Urine WBC 2-5 /HPF Urine Squamous Epithelial Cells 2-5 /HPF Urine Crystals NONE /LPF Urine Bacteria FEW H /HPF Urine Casts NONE /LPF Urine Mucus NEGATIVE /LPF Urine Culture Indicated NO White Blood Count 6.5 4.3-11.0 10^3/uL Red Blood Count 4.94 4.35-5.85 10^6/uL Hemoglobin 15.2 11.5-16.0 G/DL Hematocrit 45 35-52 % Mean Corpuscular Volume 91 80-99 FL Mean Corpuscular Hemoglobin 31 25-34 PG Mean Corpuscular Hemoglobin Concent 34 32-36 G/DL Red Cell Distribution Width 12.9 10.0-14.5 % Platelet Count 238 130-400 10^3/uL Mean Platelet Volume 9.5 7.4-10.4 FL Neutrophils (%) (Auto) 41 L 42-75 % Lymphocytes (%) (Auto) 45 H 12-44 % Monocytes (%) (Auto) 10 0-12 % Eosinophils (%) (Auto) 4 0-10 % Basophils (%) (Auto) 1 0-10 % Neutrophils # (Auto) 2.7 1.8-7.8 X 10^3 Lymphocytes # (Auto) 2.9 1.0-4.0 X 10^3 Monocytes # (Auto) 0.6 0.0-1.0 X 10^3 Eosinophils # (Auto) 0.2 0.0-0.3 10^3/uL Basophils # (Auto) 0.0 0.0-0.1 10^3/uL Prothrombin Time 15.1 H 12.2-14.7 SEC INR Comment 1.2 0.8-1.4 Activated Partial Thromboplast Time 37 H 24-35 SEC Sodium Level 140 135-145 MMOL/L Potassium Level 3.5 L 3.6-5.0 MMOL/L Chloride Level 107 98-107 MMOL/L Carbon Dioxide Level 28 21-32 MMOL/L Anion Gap 5 5-14 MMOL/L Blood Urea Nitrogen 12 7-18 MG/DL Creatinine 0.85 0.60-1.30 MG/DL Estimat Glomerular Filtration Rate > 60 BUN/Creatinine Ratio 14 Glucose Level 89 70-105 MG/DL Lactic Acid Level 0.93 0.50-2.00 MMOL/L Calcium Level 9.1 8.5-10.1 MG/DL Magnesium Level 2.0 1.8-2.4 MG/DL Total Bilirubin 0.6 0.1-1.0 MG/DL Aspartate Amino Transf (AST/SGOT) 18 5-34 U/L Alanine Aminotransferase (ALT/SGPT) 14 0-55 U/L Alkaline Phosphatase 77 40-136 U/L Troponin I < 0.30 <0.30 NG/ML B-Type Natriuretic Peptide 133.8 H <100.0 PG/ML Total Protein 7.8 6.4-8.2 GM/DL Albumin 4.1 3.2-4.5 GM/DL Amylase Level 47 25-125 U/L Lipase 30 8-78 U/L Micro Results Microbiology 06/25/17 Influenza Types A,B Antigen (TULIO) - Final, Complete My Orders Orders - MARCELO VASQUEZ DO Ekg Tracing (06/25/17 14:39) Saline Lock/Iv-Start (06/25/17 15:45) Monitor-Rhythm Ecg Trace Only (06/25/17 15:45) Amylase (06/25/17 15:45) BNP (06/25/17 15:45) Cbc With Automated Diff (06/25/17 15:45) Comprehensive Metabolic Panel (06/25/17 15:45) Lactic Acid Analyzer (06/25/17 15:45) Lipase (06/25/17 15:45) Magnesium (06/25/17 15:45) Protime With Inr (06/25/17 15:45) Partial Thromboplastin Time (06/25/17 15:45) Troponin I (06/25/17 15:45) Ua Culture If Indicated (06/25/17 15:45) Blood Culture (06/25/17 15:45) Influenza A And B Antigens (06/25/17 15:45) Chest Pa/Lat (2 View) (06/25/17 15:52) Ct [facility] Chest/Noang Abd-Pelv W (06/25/17 17:07) Iohexol Injection (Omnipaque 350 Mg/Ml 1 (06/25/17 17:15) Ns (Ivpb) (Sodium Chloride 0.9%) (06/25/17 17:15) Iohexol Injection (Omnipaque 350 Mg/Ml 1 (06/25/17 18:00) Ns (Ivpb) (Sodium Chloride 0.9%) (06/25/17 18:00) Pharmacy Communication (Pharmacy Communi (06/25/17 17:47) Medications Given in ED Current Medications Medications Dose Ordered Sig/Aicha Route Start Time Stop Time Status Last Admin Dose Admin Iohexol 100 ml ONCE ONCE IV 06/25/17 17:15 06/25/17 17:16 DC 06/25/17 17:32 125 ML Sodium Chloride 250 ml ONCE ONCE IV 06/25/17 17:15 06/25/17 17:17 DC 06/25/17 17:32 80 ML Vital Signs/I&O Vital Sign - Last 12Hours 06/25/17 06/25/17 14:27 16:50 Temp 98.1 98.1 Pulse 51 51 Resp 18 18 B/P (MAP) 145/77 (99) 145/77 Pulse Ox 93 93 O2 Delivery Room Air Capillary Refill : Less Than 3 Seconds Blood Pressure Mean: [address] CHEST ANGIOGRAM/ ABDOMEN AND PELVIS--NO ACUTE PROCESS, PER RADIOLOGIST REPORT @ 1816 CXR--NO ACUTE PROCESS, PER RADIOLOGIST REPORT AT 1816 Reviewed: Reviewed by Me Departure Impression Impression: Primary Impression: CHEST AND ABDOMINAL WALL PAIN Additional Impressions: UTI (urinary tract infection) Situational mixed anxiety and depressive disorder Disposition: 01 HOME, SELF-CARE Condition: Improved Departure-Patient Inst. Referrals: LIZA CERDA MD (PCP/Family) Primary Care Physician Patient Instructions: Abdominal Muscle Strain (DC), Costochondritis (DC), Urinary Tract Infection, Adult (DC) Add. Discharge Instructions: TYLENOL NEEDED FOR PAIN LOTS OF CLEAR LIQUIDS FOLLOW UP WITH YOUR DR NEXT WEEK FOR FURTHER CARE All discharge instructions reviewed with patient and/or family. Voiced understanding. Scripts Tramadol HCl (Ultram) 50 Mg Tablet 50 MG PO Q4H, #20 TAB Prov: MARCELO VASQUEZ DO 06/25/17 Nitrofurantoin Monohyd/M-Cryst (Macrobid 100 mg Capsule) 100 Mg Capsule 100 MG PO BID, #20 CAP Prov: MARCELO VASQUEZ DO 06/25/17 MARCELO VASQUEZ DO Jun 25, 2017 18:22
[2017-06-25] MEDS ORDERED: TRAM-42 PO (18:24)
[2017-06-25] MEDS ORDERED: NITR-65 PO (18:24)
[2017-06-25] MEDS ORDERED: NITROFURANTOIN 100 MG (MACROBID) CAPSULE PO ONE (18:30)
[2017-06-25] MEDS ORDERED: KETOROLAC 30 MG/ML VIAL IVP ONE (18:30)
[2017-06-25 18:51] VITALS: BP 145/77
[2017-06-25] MEDS ORDERED: RECEIVED CONTRAST (Hold Metformin) IV SCH (19:00)
== END 2017-06-25 18:51 | disposition home or self-care (01) ==
LOC: EDUNIT# 12:49 → ER 12:51
DX: R07.89 Other chest pain (principal); N39.0 Urinary tract infection, site not specified; F41.8 Other specified anxiety disorders; I10 Essential (primary) hypertension; K21.9 Gastro-esophageal reflux disease without esophagitis; Z85.828 Personal history of other malignant neoplasm of skin; Z79.01 Long term (current) use of anticoagulants; Z90.49 Acquired absence of other specified parts of digestive tract; Z87.01 Personal history of pneumonia (recurrent)
CPT/HCPCS: 36415; 71046; 71275; 74177; 80053; 81000; 82150; 83605; 83690; 83735; 83880; 84484; 85025; 85610; 85730; 87040; 87088; 87804; 93005; 93041; 96374